=== PATIENT | female | born 1950 | race Caucasian/White ===

== ENCOUNTER 2017-09-18 06:33 | Day surgery (SDC) | payer OTHER ==
[~2017-09-18 06:33] MED LIST: ADVAIR HFA 230/12 GM IH; ALPHAGAN P5 M2 OP; CARDIZEM CD180 MG PO; FOSAMAX70 MG PO; LASIX20 MG PO; LEVO-T25 MCG PO; METFORMIN HCL500 MG PO; SINGULAIR10 MG PO; VITAMIN D31000 UNI2 PO; ZANTAC300 MG PO
[2017-09-18] MEDS ORDERED: MACROBID 100 M100 MG PO (12:33)
[2017-09-18] MEDS ORDERED: TYLENOL-CODEINE1 TA1 PO (12:33)
== END 2017-09-18 16:10 | disposition home or self-care (01) ==
LOC: CIR.AMB 06:33
DX: N81.3 Complete uterovaginal prolapse (principal); N39.3 Stress incontinence (female) (male)
CPT/HCPCS: 57288; 57020; 57210; C1771